=== PATIENT | female | born 1980 | race Caucasian/White ===

== ENCOUNTER → 2016-12-09 | Outpatient (CLI) | payer BC ==
[~2016-12-09] MED LIST: ATIV1TAB7 PO; IRON65TA PO; LEXA1TAB2 PO; OXYC1TAB23 PO; PROT1TAB2 PO; TYLE167L PO
--- NOTE | 2016-12-12 23:45 | ECWPNPC ---
PATIENT NAME: VANDANA RIOS : 1980 GENDER: FEMALE VISIT DATE: 12/09/2016 DISCHARGE DATE: 12/09/16 1239 VISIT LOCKED DATE TIME: PHYSICIAN: SERGEY NEGRETE RESOURCE: SERGEY NEGRETE REASON FOR APPOINTMENT 1. BACK HISTORY OF PRESENT ILLNESS HISTORY OF PRESENT ILLNESS: PAIN THE PATIENT DESCRIBES THE PAIN... FALL RISK SCREENING: SCREENING :NO FALLS IN THE PAST YEAR TODAY'S VISIT: NOTES: RATES PAIN TODAY 10. IS DISCUSSING A CLAY-AURICULAR IMPLANT WITH DR MATHEW. IS GOING TO GYM ON A REGULAR BASIS FOR CORE STRENGTHENING. . CURRENT MEDICATIONS TAKING EFFEXOR XR 150 MG CAPSULE EXTENDED RELEASE 24 HOUR 1 CAPSULE WITH FOOD ORALLY ONCE A DAY TAKING LEVOTHYROXINE SODIUM 50 MCG TABLET 1 TABLET ORALLY ONCE A DAY TAKING CALCIUM 500 MG TABLET 1 TABLET WITH MEALS ORALLY TWICE A DAY TAKING VITAMIN B 12 100 MCG LOZENGE ORALLY DAILY TAKING VITAMIN D 31261 UNIT CAPSULE 1 CAPSULE ORALLY WEEKLY TAKING PERCOCET 5-325 MG TABLET 1 TABLET ORALLY TAKE 1-2 Q 6 HRS PRN PAIN MDD=4 NOT-TAKING BIOTIN 5000 5 MG CAPSULE 1 CAPSULE ORALLY ONCE A DAY NOT-TAKING IRON 325 (65 FE) MG TABLET 1 TABLET ORALLY ONCE A DAY MEDICATION LIST REVIEWED AND RECONCILED WITH THE PATIENT PAST MEDICAL HISTORY 2010 GASTRIC BYPASS ANEMIA DEPRESSION ALLERGIES MOTRIN: CONTRAINDICATED: CONTRAINDICATION GABAPENTIN: BLURRED VISION: SIDE EFFECTS SOCIAL HISTORY GENERAL: TOBACCO USE ARE YOU A:CURRENT SMOKER E-CIGARETTEYES LEARNING BARRIERS / SPECIAL NEEDS ORIENTED TO PLAN OF CARE: PATIENT, PAIN MANAGEMENT PATIENT, ORIENTED TO PLAN OF CARE: PATIENT, PAIN MANAGEMENT PATIENT. NEW PATIENT PAIN DIARY TODAY'S VISITNOTES FROM 0-10, WHAT LEVEL IS YOUR PAIN TODAY?0 PAIN CLINIC PFS, CLERGY, PUBLIC HEALTH REFERRALS PFS REFERRAL NEEDED?NO CLERGY REFERRAL NEEDED?NO PUBLIC HEALTH REFERRAL NEEDED?NO WAS THE PROVIDER NOTIFIED OF ANY PERTINENT INFO?NO PFS REFERRAL NEEDED?NO CLERGY REFERRAL NEEDED?NO PUBLIC HEALTH REFERRAL NEEDED?NO WAS THE PROVIDER NOTIFIED OF ANY PERTINENT INFO?NO REVIEW OF SYSTEMS CONSTITUTIONAL: ANY CHANGE IN YOUR MEDICAL CONDITION? NO . CHILLS NO . FEVER NO . INFECTION: DO YOU HAVE NEW INFECTIONS? NO . DO YOU HAVE HISTORY OF MRSA? NO . MUSCULOSKELETAL: ANY NEW PATTERNS OF PAIN OR NUMBNESS? YES, INCREASED PAIN IN LOW BACK AND LEGS . GASTROENTEROLOGY: GENERAL S/P GASTRIC BYPASS. WEIGHT IS CURRENTLY STABLE. DENIES CONSTIPATION . ANY NEW CHANGE IN BOWEL CONTROL? NO . GENITOURINARY: ANY NEW CHANGE IN BLADDER CONTROL? NO . IS THERE A CHANCE YOU COULD BE ? NO . HEMATOLOGY/LYMPH: DO YOU TAKE ANY BLOOD THINNERS? (FOR EXAMPLE- COUMADIN, PLAVIX, AGGRENOX, PLATEL, PRADAXA, OR XARELTO) NO . WHEN WAS YOUR LAST DOSE? DATE: TIME: . NEUROLOGY: HAVE YOU FALLEN IN THE PAST 6 MONTHS? NO . ANY NEW EXTREMITY NUMBNESS OR WEAKNESS? NO . CARDIOLOGY: DO YOU HAVE A PACEMAKER OR DEFIBRILLATOR? NO . RESPIRATORY: HAVE YOU BEEN SICK IN THE PAST WEEK? NO . FEVER NO . FLU LIKE SYMPTOMS? NO . COUGH NO . INTEGUMENTARY: DO YOU HAVE ANY RASHES OR OPEN SORES? NO . ALLERGIC/IMMUNO: ARE YOU ALLERGIC TO SHELLFISH OR IV DYE? NO . ANY NEW ALLERGIES? NO . PSYCHIATRIC: DO YOU HAVE THOUGHTS OF HURTING YOURSELF OR SOMEONE ELSE? NO . ARE YOU ABUSED, NEGLECTED, OR IN AN UNSAFE ENVIRONMENT? NO . ENDOCRINOLOGY: ARE YOU DIABETIC? NO . OTHER: DO YOU NEED ANY PRESCRIPTIONS? NO . IF YES, PLEASE LIST: ____ . ANY NEW PROBLEMS WITH YOUR MEDICATIONS? NO . WHEN DID YOU LAST EAT? ____ . WHEN DID YOU LAST DRINK? ____ . WHAT DID YOU LAST DRINK? ____ . NAME OF PERSON DRIVING YOU HOME? ____ . DO YOU HAVE ANY OTHER QUESTIONS OR CONCERNS NO . REVIEWED BY: PROVIDER: SERGEY CALDERON . VITAL SIGNS WT 195.2 LBS, HT 63 IN, BMI 34.57 INDEX, BP 150/84 MM HG, HR 82 /MIN, RR 16 /MIN, TEMP 97.0 F, OXYGEN SAT % 99%, NA INITIALS SC 11:55, REVIEWED BY: CS. EXAMINATION GENERAL EXAMINATION: PSYCHALERT , ORIENTED X 3 , APPROPRIATE MOOD AND AFFECT . LUNGS:CLEAR TO AUSCULTATION BILATERALLY. MUSCULOSKELETAL:MUSCLE STRENGTH TESTING 5/5 BILATERAL LOWER EXTREMITIES. , PALPATION: POSITIVE FOR MINIMAL TENDERNESS OVER L/S SPINE. FEW TRIGGER POINTS ARE APPRECIATED ACROSS LUMBAR PARAVERTEBRAL MUSCLES. ASSESSMENTS LUMBAR DISC DISPLACEMENT WITHOUT MYELOPATHY - M51.26 (PRIMARY) MYALGIA - M79.1 TREATMENT LUMBAR DISC DISPLACEMENT WITHOUT MYELOPATHY START BUTRANS PATCH WEEKLY, 5 MCG/HR, 1 PATCH TO SKIN, TRANSDERMAL, APPLY 1 PATCH Q 7 DAYS MDD=1, 30 DAY(S), 4, REFILLS 1 NOTES: CONTINUE EXERCISE. CONTINE PLANNED EXERCISE AND DIET. CONTINE CURRENT MEDS. CLINICAL NOTES: ISTOP REGISTRY REVIEWED AND DEMNOSTRATES COMPLLIANCE. RECENT URINE TOXICOLOGY REVIEWED. NO UNAUTHORIZED MEDICATIONS. NO ILLICIT SUBSTANCES AND PRESCRIBED MEDICATIONS WERE PRESENT. PREVENTIVE MEDICINE PAIN CLINIC TEACHING: MEDICATIONS BUTRANS PATCH INFORMATION PRINTED AND GIVEN TO PATIENT. PROCEDURE CODES FA211 ESTABILISHED PATIENT [facility] CHARGE DISPOSITION & COMMUNICATION FOLLOW UP 2 MONTHS ELECTRONICALLY SIGNED BY TAWNYA CASE ON 12/12/2016 AT 08:02 PM EDT DISCLAIMER : THIS IS A VISIT SUMMARY EXTRACTED FROM THE [employer] CHART. IT IS NOT A COPY OF THE [employer] PROGRESS NOTE. JOHN
== END ==
LOC: M PAIN 11:40
PROVIDERS: ATTEND Nurse Practitioner Family
DX: Z09 Encounter for follow-up examination after completed treatment for conditions other than malignant neoplasm (principal); G89.29 Other chronic pain; M51.26 Other intervertebral disc displacement, lumbar region; M79.1 Myalgia; D64.9 Anemia, unspecified; F32.9 Major depressive disorder, single episode, unspecified; F17.200 Nicotine dependence, unspecified, uncomplicated; Z88.6 Allergy status to analgesic agent; Z88.8 Allergy status to other drugs, medicaments and biological substances; Z79.891 Long term (current) use of opiate analgesic; Z79.899 Other long term (current) drug therapy; Z98.84 Bariatric surgery status

== ENCOUNTER 2017-03-14 01:35 | Emergency (ER) | payer BC ==
[~2017-03-14] VITALS: Ht 160 cm; Wt 90.0 kg
[2017-03-14] MEDS ORDERED: EFFE150C PO (01:52)
[2017-03-14] MEDS ORDERED: LEVO50TA5 PO (01:52)
[2017-03-14] MEDS ORDERED: D5W/0.9% SODIUM CHLORIDE 1,000 ML IV ONE (02:45)
[2017-03-14] MEDS ORDERED: METOCLOPRAMIDE INJ 10MG/2ML VIAL (J2765) IV ONE (02:45)
--- NOTE | 2017-03-14 03:10 | REP ---
Clinical: Trauma . Comparison: None . Findings: The ventricles, sulci, and cisterns are normal in position and appearance. Lewis-white differentiation is maintained. No acute intracranial hemorrhage, mass/mass effect, pathology or trauma/injury. No evidence for acute infarction. No extra-axial fluid collection. Calvarium is intact. Paranasal sinuses and mastoid air cells are clear. Impression: Normal noncontrast head CT. No evidence for acute intracranial pathology or trauma/injury. Signed by Serg Young MD 03/14/2017 03:02 A
--- NOTE | 2017-03-14 03:11 | REP ---
Clinical: Trauma . Technique: Axial noncontrast images from the skull base to the thoracic inlet with coronal and sagittal re-formations Findings: Normal alignment and lordosis is maintained. Cervical vertebral bodies including transverse processes and spinous processes are intact and there is no evidence for acute fracture / compression injury or subluxation. Spinal canal is patent. Posterior elements are intact. Paravertebral soft tissues are normal. Impression: Normal noncontrast cervical spine CT. No evidence for acute pathology or trauma/injury. Signed by Serg Young MD 03/14/2017 03:03 A
[2017-03-14] MEDS ORDERED: MORPHINE 4 MG/ML 1ML SYRINGE As Ordered ONE (03:13)
[2017-03-14] MEDS ORDERED: MORPHINE 4 MG/ML 1ML SYRINGE IV ONE (03:15)
[2017-03-14 03:41] LABS: BASO % 0.1 % (0.0-1.0); EOS # 0.1 K/mm3 (0.0-0.50); EOS % 0.9 % (0.0-3.0); LARGE UNSTAINED CELL # 0.1 K/mm3 (0.0-0.4); LARGE UNSTAINED CELL % 0.8 % (0.0-4.0); LYMPH # 1.2 K/mm3 (1.5-4.5); LYMPH % 11.7 % (24.0-44.0); MEAN CORPUSCULAR HEMOGLOBIN 26.2 pg (27.0-33.0); MEAN CORPUSCULAR HGB CONC 30.9 g/dl (32.0-36.5); MEAN CORPUSCULAR VOLUME 84.5 fl (80.0-96.0); MONO # 0.5 K/mm3 (0.0-0.8); MONO % 5.2 % (0.0-5.0); NEUTROPHILS # 7.7 K/mm3 (1.8-7.7); NEUTROPHILS % 81.3 % (36.0-66.0); PLATELET COUNT, AUTOMATED 240 k/mm3 (150-450); WHITE BLOOD COUNT 9.4 K/mm3 (4.0-10.0)
[2017-03-14] MEDS ORDERED: LIDOCAINE W/EPINEPHRINE 1% 20ML VIAL SC ONE (04:00)
[2017-03-14] MEDS ORDERED: TETANUS/DIPHTHERIA TOX ADSORB ADULT 0.5ML SYR/VIAL (90714) IM ONE (04:30)
[2017-03-14 04:52] VITALS: BP 106/55
[2017-03-14] MEDS ORDERED: ONDANSETRON 4MG/2ML VIAL (J2405) IV ONE (05:00)
== END 2017-03-14 05:01 | disposition home or self-care (01) ==
LOC: M ED 04:24
DX: S01.01XA Laceration without foreign body of scalp, initial encounter (principal); W18.09XA Striking against other object with subsequent fall, initial encounter; Y92.019 Unspecified place in single-family (private) house as the place of occurrence of the external cause; Y93.9 Activity, unspecified; Y99.9 Unspecified external cause status; F32.9 Major depressive disorder, single episode, unspecified; F17.200 Nicotine dependence, unspecified, uncomplicated; Z79.899 Other long term (current) drug therapy
CPT/HCPCS: 12002; 70450; 72125; 85025; 90471; 90714; 93041; 94760; 96374; 96375; 99285; J2405; J2765

== ENCOUNTER → 2017-03-21 | Outpatient (CLI) | payer BC ==
[~2017-03-21] MED LIST changes: +EFFE150C PO; +LEVO50TA5 PO
[2017-03-21 17:26] LABS: VITAMIN B12 LEVEL 507 PG/ML
[2017-03-21 17:27] LABS: ALBUMIN 3.8 GM/DL (3.2-5.2); ALBUMIN/GLOBULIN RATIO 1.09 (1.00-1.93); ALKALINE PHOSPHATASE 58 U/L (45-117); ALT/SGPT 26 U/L (12-78); ANION GAP 4 MEQ/L (8-16); AST/SGOT 22 U/L (15-37); BILIRUBIN,TOTAL 0.3 MG/DL (0.2-1.0); BLOOD UREA NITROGEN 11 MG/DL (7-18); CALCIUM LEVEL 8.5 MG/DL (8.5-10.1); CARBON DIOXIDE LEVEL 29 MEQ/L (21-32); CHLORIDE LEVEL 106 MEQ/L (98-107); CREATININE FOR GFR 0.81 MG/DL (0.55-1.02); FOLATE 11.5 NG/ML; GLOMERULAR FILTRATION RATE > 60.0 (>60); GLUCOSE, FASTING 57 MG/DL (70-105); POTASSIUM SERUM 4.2 MEQ/L (3.5-5.1); SODIUM LEVEL 139 MEQ/L (136-145); TOTAL PROTEIN 7.3 GM/DL (6.4-8.2)
[2017-03-21 17:28] LABS: FREE T4 0.93 NG/DL (0.76-1.46)
== END ==
LOC: M WUC 11:18
PROVIDERS: ATTEND Nurse Practitioner Family
DX: E53.8 Deficiency of other specified B group vitamins (principal); E55.9 Vitamin D deficiency, unspecified; E03.9 Hypothyroidism, unspecified; E61.1 Iron deficiency

== ENCOUNTER → 2017-08-12 | Outpatient (CLI) | payer BC ==
[2017-08-12 13:56] LABS: ALBUMIN 3.9 GM/DL (3.2-5.2); ALBUMIN/GLOBULIN RATIO 1.11 (1.00-1.93); ALKALINE PHOSPHATASE 62 U/L (45-117); ALT/SGPT 23 U/L (12-78); ANION GAP 6 MEQ/L (8-16); AST/SGOT 13 U/L (7-37); BILIRUBIN,TOTAL 0.3 MG/DL (0.2-1.0); BLOOD UREA NITROGEN 14 MG/DL (7-18); CARBON DIOXIDE LEVEL 28 MEQ/L (21-32); CHLORIDE LEVEL 107 MEQ/L (98-107); CREATININE FOR GFR 0.85 MG/DL (0.55-1.02); FREE T4 0.87 NG/DL (0.76-1.46); GLOMERULAR FILTRATION RATE > 60.0 (>60); GLUCOSE, FASTING 72 MG/DL (70-105); POTASSIUM SERUM 4.1 MEQ/L (3.5-5.1); SODIUM LEVEL 141 MEQ/L (136-145); TOTAL PROTEIN 7.4 GM/DL (6.4-8.2)
== END ==
LOC: M WUC 10:27
PROVIDERS: ATTEND Nurse Practitioner Family
DX: E61.1 Iron deficiency (principal); E55.9 Vitamin D deficiency, unspecified

== ENCOUNTER → 2017-09-30 | Outpatient (CLI) | payer BC | LOC: M PAIN 10:45 | DX: M51.26 Other intervertebral disc displacement, lumbar region (principal); M79.1 Myalgia; M54.16 Radiculopathy, lumbar region; F32.9 Major depressive disorder, single episode, unspecified; Z79.899 Other long term (current) drug therapy; Z88.8 Allergy status to other drugs, medicaments and biological substances; Z98.84 Bariatric surgery status | CPT/HCPCS: G0463 ==

== ENCOUNTER → 2017-10-13 | Outpatient (REF) | payer BC | LOC: M LAB REF 16:42 | DX: J03.90 Acute tonsillitis, unspecified (principal) | CPT/HCPCS: 87081 ==

== ENCOUNTER → 2017-10-20 | Outpatient (CLI) | payer BC ==
[~2017-10-20] MED LIST changes: -ATIV1TAB7 PO; -EFFE150C PO; -IRON65TA PO; -LEVO50TA5 PO; -LEXA1TAB2 PO; +LIDOCAINE 1% SDV INJ 30 ML VIAL As Ordered; -OXYC1TAB23 PO; -PROT1TAB2 PO; -TYLE167L PO; +diazePAM 5 MG TAB As Ordered; +methylPREDNISolone SUSP 40 MG/ML (DEPO-medrol) VIAL (J1030) As Ordered; +oxyCODONE 5MG TAB As Ordered
== END ==
LOC: M PAIN 10:45
DX: G89.29 Other chronic pain (principal); M51.16 Intervertebral disc disorders with radiculopathy, lumbar region; J45.909 Unspecified asthma, uncomplicated; F32.9 Major depressive disorder, single episode, unspecified; F17.200 Nicotine dependence, unspecified, uncomplicated; Z79.899 Other long term (current) drug therapy; Z88.6 Allergy status to analgesic agent; Z88.8 Allergy status to other drugs, medicaments and biological substances; Z98.84 Bariatric surgery status
CPT/HCPCS: J1030

== ENCOUNTER → 2017-12-09 | Outpatient (CLI) | payer BC | LOC: M PAIN 14:15 | DX: G89.29 Other chronic pain (principal); M51.26 Other intervertebral disc displacement, lumbar region; M79.1 Myalgia; M54.16 Radiculopathy, lumbar region; D64.9 Anemia, unspecified; F32.9 Major depressive disorder, single episode, unspecified; Z98.84 Bariatric surgery status; F17.210 Nicotine dependence, cigarettes, uncomplicated; Z79.891 Long term (current) use of opiate analgesic; Z79.899 Other long term (current) drug therapy; Z88.8 Allergy status to other drugs, medicaments and biological substances | CPT/HCPCS: G0463 ==

== ENCOUNTER → 2017-12-17 | Outpatient (CLI) | payer BC ==
[~2017-12-17] MED LIST changes: +ISOVUE-M 300 61% 15ML VIAL (Q9967) As Ordered; +diphenhydrAMINE 25 MG CAP As Ordered
== END ==
LOC: M PAIN 08:30
DX: G89.29 Other chronic pain (principal); M51.16 Intervertebral disc disorders with radiculopathy, lumbar region; D64.9 Anemia, unspecified; F32.9 Major depressive disorder, single episode, unspecified; Z79.891 Long term (current) use of opiate analgesic; Z79.899 Other long term (current) drug therapy; Z88.8 Allergy status to other drugs, medicaments and biological substances; Z98.84 Bariatric surgery status
CPT/HCPCS: J1030

== ENCOUNTER → 2018-01-28 | Outpatient (CLI) | payer BC | END | disposition home or self-care (01) | LOC: M PAIN 15:15 | DX: G89.29 Other chronic pain (principal); M51.26 Other intervertebral disc displacement, lumbar region; M79.1 Myalgia; M54.16 Radiculopathy, lumbar region; F33.9 Major depressive disorder, recurrent, unspecified; D64.9 Anemia, unspecified; Z98.84 Bariatric surgery status; Z79.899 Other long term (current) drug therapy; Z88.8 Allergy status to other drugs, medicaments and biological substances; F17.210 Nicotine dependence, cigarettes, uncomplicated | CPT/HCPCS: G0463 ==

== ENCOUNTER → 2018-03-11 | Outpatient (CLI) | payer BC | LOC: M PAIN 15:15 | DX: M51.26 Other intervertebral disc displacement, lumbar region (principal); M79.1 Myalgia; M54.16 Radiculopathy, lumbar region; F17.210 Nicotine dependence, cigarettes, uncomplicated; F32.9 Major depressive disorder, single episode, unspecified; Z79.899 Other long term (current) drug therapy; Z88.8 Allergy status to other drugs, medicaments and biological substances; Z98.84 Bariatric surgery status | CPT/HCPCS: G0463 ==

== ENCOUNTER 2019-04-05 20:18 | Emergency (ER) | payer BC, SELFPAY ==
[~2019-04-05 20:18] MED LIST changes: +ATIV1TAB7 PO; +EFFE150C2 PO; +IRON65TA PO; -ISOVUE-M 300 61% 15ML VIAL (Q9967) As Ordered; +LEVO50TA5 PO; +LEXA1TAB2 PO; -LIDOCAINE 1% SDV INJ 30 ML VIAL As Ordered; +OXYC1TAB23 PO; +PROT1TAB2 PO; +TYLE167L PO; -diazePAM 5 MG TAB As Ordered; -diphenhydrAMINE 25 MG CAP As Ordered; -methylPREDNISolone SUSP 40 MG/ML (DEPO-medrol) VIAL (J1030) As Ordered; -oxyCODONE 5MG TAB As Ordered
[2019-04-05 22:17] LABS: APPEARANCE, URINE CLEAR (CLEAR); BACTERIA, URINE AUTO 1+ (NEGATIVE); BILIRUBIN, URINE AUTO NEGATIVE (NEGATIVE); BLOOD, URINE BLOOD NEGATIVE (NEGATIVE); COLOR, URINE YELLOW (YELLOW); GLUCOSE, URINE (UA) AUTO NEGATIVE (NEGATIVE); KETONE, URINE AUTO NEGATIVE (NEGATIVE); LEUKOCYTE ESTERASE, URINE AUTO NEGATIVE (NEGATIVE); NITRITE, URINE AUTO NEGATIVE (NEGATIVE); PROTEIN, URINE AUTO NEGATIVE (NEGATIVE); RBC, URINE AUTO 2 /HPF (0-3); SPECIFIC GRAVITY URINE AUTO 1.009 (1.002-1.035); SQUAMOUS EPITHELIAL CELL UR AU 2 /HPF (0-6); UROBILINOGEN, URINE AUTO 0.2 mg/dL (0.0-2.0); WBC, URINE AUTO 1 /HPF (0-3)
[2019-04-05 23:37] LABS: CHLAMYDIA DNA AMPLIFICATION NEGATIVE (NEGATIVE); GC DNA AMPLIFICATION NEGATIVE (NEGATIVE)
[2019-04-06] MEDS ORDERED: valACYclovir HCL 500 MG TAB PO ONE (00:15)
[2019-04-06] MEDS ORDERED: VALA1TAB2 PO (00:20)
[2019-04-06 00:42] VITALS: BP 159/67
[2019-04-10 00:07] LABS: HSV TYPE I IgG SPECIFIC <0.91 index (0.00-0.90); HSV TYPE I IgM AB <1:10 titer (<1:10); HSV TYPE II IgG SPECIFIC <0.91 index (0.00-0.90); HSV TYPE II IgM ABY <1:10 titer (<1:10)
== END 2019-04-06 00:43 | disposition home or self-care (01) ==
LOC: M ED 20:18 → EEVIPCON 20:18 → M ED 04-06 00:43
DX: A60.00 Herpesviral infection of urogenital system, unspecified (principal); Z98.84 Bariatric surgery status; Z79.899 Other long term (current) drug therapy

== ENCOUNTER 2019-07-22 19:19 | Emergency (ER) | payer SELFPAY ==
[~2019-07-22] VITALS: Ht 160 cm; Wt 95.5 kg
[~2019-07-22 19:19] MED LIST changes: +VALA1TAB2 PO
[2019-07-22] MEDS ORDERED: metroNIDAZOLE 500 MG in IV 1 EA IV ONE (20:15)
[2019-07-22] MEDS ORDERED: AMPICILLIN SOD/SULBACTAM SOD 3 GM in D5W MINI-BAG PLUS 100 ML IV ONE (20:15)
[2019-07-22] MEDS ORDERED: MORPHINE 2 MG/ML 1ML VIAL (J2270) IV ONE (20:15)
[2019-07-22] MEDS ORDERED: BUPIVACAINE LIPOSOME/PF 1.3% 20ML VIAL (13.3MG/ML)(EXPAREL)(C9290 PER1MG) INFIL ONE (20:15)
[2019-07-22] MEDS ORDERED: ONDANSETRON 4MG/2ML VIAL (J2405) As Ordered ONE (20:27)
[2019-07-22] MEDS ORDERED: ONDANSETRON 4MG/2ML VIAL (J2405) IV ONE (20:30)
[2019-07-22] MEDS ORDERED: FLAG500T PO (20:57)
[2019-07-22] MEDS ORDERED: MORPHINE 4 MG/ML 1ML VIAL/SYRINGE (J2270) IV ONE ×2 (22:30→23:45)
[2019-07-22 22:50] VITALS: BP 171/91
--- NOTE | 2019-07-22 23:31 | REPVR ---
PROCEDURE INFORMATION: Exam: CT Maxillofacial Without Contrast Exam date and time: 07/22/2019 10:25 PM Clinical history: 38 years old, female; Condition or disease; Abcess; Jaw; Right; Additional info: Eval periodnt absc TECHNIQUE: Imaging protocol: Computed tomography images of the face without contrast. Radiation optimization: All CT scans at this facility use at least one of these dose optimization techniques: automated exposure control; mA and/or kV adjustment per patient size (includes targeted exams where dose is matched to clinical indication); or iterative reconstruction. COMPARISON: No relevant prior studies available. FINDINGS: Limitations: Dental amalgam artifact obscures the oral cavity and oral pharynx. Orbits: Orbits are normal. Globes are unremarkable. Sinuses: Mild ethmoid sinus mucosal thickening. Bones/joints: No acute fracture. Dental: Right mandibular first and second premolars periapical abscess. Right perimandibular phlegmon and thickening. Dental caries and periodontal disease. Oropharynx: There is some gas foci, likely venous in the right parapharyngeal space. Lymph nodes: Mild upper cervical chain adenopathy. Submandibular/Parotid glands: Asymmetrically larger right submandibular gland, evidence of sialadenitis. Soft tissues: Right cheek subcutaneous stranding and edema. IMPRESSION: 1. Right mandibular first and second premolars periapical abscess. Right perimandibular phlegmon and thickening. Right cheek subcutaneous stranding and edema. 2. Asymmetrically larger right submandibular gland, evidence of sialadenitis. Electronically signed by: Korey Gomez On 07/22/2019 23:31:27 PM
[2019-07-22] MEDS ORDERED: NORCO 5/325MG TABLET (BULK FOR ED) PO ONE (23:45)
--- NOTE | 2019-07-22 23:47 | ED PDOC ---
Post-Departure Follow-Up After my first intraoral injection I went to re-evaluate pt. stated her tongue was numb, but her teeth/face still hurt. I felt the infiltration was only to the lingual nerve. Went back and infiltrated more posteriorly on the mandibular body in order to anesthetize the alveolar nerve. P t. stated this improved her tooth pain but not her facial pain. BERANRDA TUBBS DO Jul 22, 2019 23:47
[2019-07-23] MEDS ORDERED: MORPHINE 4 MG/ML 1ML VIAL/SYRINGE (J2270) IV ONE (00:15)
[2019-07-23] MEDS ORDERED: HYDR-3713 PO ×2 (13:31→16:27)
[2019-07-23] MEDS ORDERED: AUGM875T28 PO (16:20)
== END 2019-07-23 00:35 | disposition home or self-care (01) ==
LOC: M ED 19:19
DX: K04.7 Periapical abscess without sinus (principal); K02.9 Dental caries, unspecified; F32.9 Major depressive disorder, single episode, unspecified; E03.9 Hypothyroidism, unspecified; Z79.899 Other long term (current) drug therapy
CPT/HCPCS: 64400; 70486; 96365; 96375; 96376; 99284; J2270; J2405

== ENCOUNTER 2019-07-23 13:19 | Emergency (ER) | payer BC, SELFPAY ==
[~2019-07-23] VITALS: Ht 160 cm; Wt 96.2 kg
[~2019-07-23 13:19] MED LIST changes: +FLAG500T PO
[2019-07-23] MEDS ORDERED: HYDR-3713 PO ×2 (13:31→16:27)
[2019-07-23 14:00] LABS: BASO # 0.1 10^3/uL (0.0-0.2); BASO % 0.7 % (0.0-1.0); EOS # 0.2 10^3/uL (0.0-0.5); EOS % 2.1 % (0.0-3.0); HEMATOCRIT 34.5 % (36.0-47.0); HEMOGLOBIN 10.4 g/dl (12.0-15.5); LYMPH # 1.6 10^3/uL (1.5-5.0); LYMPH % 21.6 % (24.0-44.0); MEAN CORPUSCULAR HEMOGLOBIN 24.4 pg (27.0-33.0); MEAN CORPUSCULAR HGB CONC 30.1 g/dl (32.0-36.5); MEAN CORPUSCULAR VOLUME 80.8 fl (80.0-96.0); MONO # 0.9 10^3/uL (0.0-0.8); MONO % 11.8 % (0.0-5.0); NEUTROPHILS # 4.6 10^3/uL (1.5-8.5); NEUTROPHILS % 63.4 % (36.0-66.0); PLATELET COUNT, AUTOMATED 321 10^3/uL (150-450); RED BLOOD COUNT 4.27 10^6/uL (4.00-5.40); WHITE BLOOD COUNT 7.3 10^3/uL (4.0-10.0)
[2019-07-23 14:23] LABS: BLOOD UREA NITROGEN 11 MG/DL (7-18); C REACTIVE PROTEIN QUANTITATIV 2.31 MG/DL (0.00-0.30); CALCIUM LEVEL 8.8 MG/DL (8.5-10.1); CARBON DIOXIDE LEVEL 26 MEQ/L (21-32); CHLORIDE LEVEL 108 MEQ/L (98-107); CREATININE FOR GFR 0.86 MG/DL (0.55-1.30); GLOMERULAR FILTRATION RATE > 60.0 (>60); GLUCOSE, FASTING 89 MG/DL (70-100); POTASSIUM SERUM 3.8 MEQ/L (3.5-5.1); SODIUM LEVEL 138 MEQ/L (136-145)
[2019-07-23 14:41] LABS: ERYTHROCYTE SEDIMENTATION RATE 26 mm/hr (0-20)
[2019-07-23] MEDS ORDERED: MORPHINE 2 MG/ML 1ML VIAL (J2270) IV ONE (15:15)
[2019-07-23] MEDS ORDERED: BUPIVACAINE/EPIN 0.5% 30 ML VIAL XX ONE (16:00)
[2019-07-23] MEDS ORDERED: BUPIVACAINE HCL 0.5% 10 ML VIAL SC ONE (16:00)
[2019-07-23] MEDS ORDERED: BUPIVACAINE HCL 0.5% 10 ML VIAL As Ordered ONE (16:00)
[2019-07-23] MEDS ORDERED: AUGMENTIN 875 MG TAB PO ONE (16:15)
[2019-07-23] MEDS ORDERED: KETOROLAC 60 MG/2 ML VIAL (J1885) IM ONE (16:15)
[2019-07-23] MEDS ORDERED: AUGM875T28 PO (16:20)
[2019-07-23] MEDS ORDERED: KETOROLAC 30 MG/ML VIAL (J1885) IV ONE (16:30)
[2019-07-23 16:32] VITALS: BP 171/89
--- NOTE | 2019-07-24 07:52 | ED PDOC ---
Post-Departure Follow-Up ct max fac faxed to dr gomes for fu Abbi Marcelino MD Jul 24, 2019 07:52
== END 2019-07-23 16:41 | disposition home or self-care (01) ==
LOC: M ED 13:19
DX: K04.7 Periapical abscess without sinus (principal); K08.89 Other specified disorders of teeth and supporting structures; R51 Headache; Z98.84 Bariatric surgery status; F17.290 Nicotine dependence, other tobacco product, uncomplicated; Z79.899 Other long term (current) drug therapy
CPT/HCPCS: 80048; 85025; 85652; 86140; 96374; 96375; 99284; J1885; J2270

== ENCOUNTER → 2019-12-13 | Outpatient (CLI) | payer BC ==
[~2019-12-13] MED LIST changes: +AUGM875T28 PO; +HYDR-3713 PO; -VALA1TAB2 PO; +VALA1TAB5 PO
[2019-12-13 12:51] LABS: BASO % 0.8 % (0.0-1.0); EOS # 0.2 10^3/uL (0.0-0.5); EOS % 3.8 % (0.0-3.0); HEMOGLOBIN 9.5 g/dl (12.0-15.5); LYMPH # 1.5 10^3/uL (1.5-5.0); LYMPH % 29.5 % (24.0-44.0); MEAN CORPUSCULAR HEMOGLOBIN 22.4 pg (27.0-33.0); MEAN CORPUSCULAR HGB CONC 28.8 g/dl (32.0-36.5); MEAN CORPUSCULAR VOLUME 77.8 fl (80.0-96.0); MONO # 0.5 10^3/uL (0.0-0.8); NEUTROPHILS # 2.8 10^3/uL (1.5-8.5); NEUTROPHILS % 55.7 % (36.0-66.0); PLATELET COUNT, AUTOMATED 326 10^3/uL (150-450); RED BLOOD COUNT 4.24 10^6/uL (4.00-5.40)
[2019-12-13 13:15] LABS: ALBUMIN 3.7 GM/DL (3.2-5.2); ALT/SGPT 23 U/L (12-78); BILIRUBIN,TOTAL 0.4 MG/DL (0.2-1.0); BLOOD UREA NITROGEN 10 MG/DL (7-18); CALCIUM LEVEL 8.7 MG/DL (8.5-10.1); CARBON DIOXIDE LEVEL 28 MEQ/L (21-32); CHLORIDE LEVEL 110 MEQ/L (98-107); CHOLESTEROL LEVEL 157 MG/DL (<200); CHOLESTEROL RISK RATIO 2.012 (<5); CREATININE FOR GFR 0.76 MG/DL (0.55-1.30); FREE T4 0.68 NG/DL (0.76-1.46); GLOMERULAR FILTRATION RATE > 60.0 (>60); GLUCOSE, FASTING 87 MG/DL (70-100); HDL CHOLESTEROL 78 MG/DL (>40); LDL CHOLESTEROL 66 MG/DL (<100); NON-HDL-C 79 MG/DL; SODIUM LEVEL 141 MEQ/L (136-145); TOTAL 25(OH) VITAMIN D 34.9 NG/ML (30.0-100.0); TOTAL PROTEIN 7.2 GM/DL (6.4-8.2); TRIGLYCERIDES LEVEL 67 MG/DL (<150)
== END ==
LOC: M WUC 10:00
PROVIDERS: ATTEND Physician Assistant
DX: K91.2 Postsurgical malabsorption, not elsewhere classified (principal); E03.9 Hypothyroidism, unspecified; R53.83 Other fatigue; Z00.01 Encounter for general adult medical examination with abnormal findings

== ENCOUNTER → 2020-08-22 | Outpatient (REF) | payer BC ==
[2020-08-22 16:45] LABS: EOS # 0.2 10^3/uL (0.0-0.5); EOS % 3.8 % (0.0-3.0); HEMATOCRIT 33.4 % (36.0-47.0); HEMOGLOBIN 9.2 g/dl (12.0-15.5); LYMPH # 1.4 10^3/uL (1.5-5.0); LYMPH % 35.3 % (24.0-44.0); MEAN CORPUSCULAR HEMOGLOBIN 21.5 pg (27.0-33.0); MEAN CORPUSCULAR HGB CONC 27.5 g/dl (32.0-36.5); MONO # 0.4 10^3/uL (0.0-0.8); MONO % 10.3 % (0.0-5.0); NEUTROPHILS % 49.3 % (36.0-66.0); PLATELET COUNT, AUTOMATED 325 10^3/uL (150-450); RED BLOOD COUNT 4.28 10^6/uL (4.00-5.40)
[2020-08-22 16:54] LABS: THYROID STIMULATING HORMONE 1.07 uIU/ML (0.358-3.740)
== END ==
LOC: M LAB REF 16:07
PROVIDERS: ATTEND Physician Assistant
DX: E03.9 Hypothyroidism, unspecified (principal); D50.8 Other iron deficiency anemias

== ENCOUNTER → 2020-12-04 | Outpatient (CLI) | payer BC ==
[~2020-12-04] MED LIST changes: +AMIT10TA7 PO; +TIZA4CAP PO; +TOPI50TA9 PO; +TRAM50TA2 PO
== END ==
LOC: M LABSMTC 13:15
PROVIDERS: ATTEND Family Medicine
DX: Z20.822 Contact with and (suspected) exposure to COVID-19 (principal)
CPT/HCPCS: C9803; U0003

== ENCOUNTER → 2020-12-12 | Outpatient (CLI) | payer BC ==
--- NOTE | 2020-12-14 00:49 | ECWPNPC ---
PATIENT NAME: VANDANA RIOS : 1980 GENDER: FEMALE VISIT DATE: 12/12/2020 DISCHARGE DATE: 12/12/20939 VISIT LOCKED DATE TIME: PHYSICIAN: LEONARD CAMARGO RESOURCE: LEONARD CAMARGO REASON FOR APPOINTMENT 1. DEGENERATION OF LUMBAR INTERVERTABRAL DISC. HISTORY OF PRESENT ILLNESS DEPRESSION SCREENING: PHQ-2 (2015 EDITION) LITTLE INTEREST OR PLEASURE IN DOING THINGS?NOT AT ALL FEELING DOWN, DEPRESSED, OR HOPELESS?NOT AT ALL TOTAL SCORE0 40-YEAR-OLD FEMALE IN FOR INITIAL PAIN CONSULT REGARDING LOW BACK PAIN. PATIENT HAS BEEN SEEN IN THIS CLINIC PREVIOUSLY AND WAS A FORMER PATIENT OF SERGEY ROMO. PATIENT HAS HAD INJECTIONS IN THE PAST TO NO AVAIL AND IS CURRENTLY TAKING TRAMADOL WHICH SHE SAYS IS HELPFUL BUT SHE STILL EXPRESSES INCREASED PAIN. PATIENT FEELS HER LOW BACK PAIN IS RELATED TO WORKING ON THE AMBULANCE FOR MANY YEARS. PAIN CENTER INTAKE QUESTIONS: DO YOU HAVE A HISTORY OF MRSA? :NO DO YOU TAKE A BLOOD THINNERS? :NO DO YOU HAVE ANY BLEEDING DISORDERS? :NO ANY NEW NUMBNESS OR WEAKNESS IN YOUR LEGS OR ARMS? :NO ANY PACEMAKER,DEFIBRILLATOR, OR DORSAL COLUMN STIMULATOR? :NO DO YOU HAVE ANY RASHES OR OPEN SORES? :NO ARE YOU ALLERGIC TO IV DYE? :NO ARE YOU DIABETIC? :NO ANY NEW PROBLEMS WITH YOUR MEDICATIONS? :NO HAVE YOU RECEIVED A VACCINE IN THE PAST 30 DAYS? :NO DO YOU PLAN TO RECEIVE A VACCINE IN THE NEXT 21 DAYS? :NO DO YOU NEED ANY PRESCRIPTION? :NO DO YOU TAKE ANY IMMUNOSUPPRESSIVE MEDICATIONS? :NO DO YOU HAVE ANY KIDNEY OR LIVER DISEASE? :NO IS THERE A CHANCE YOU COULD BE ? :NO ARE YOU BREAST FEEDING? :NO GENERAL: - -. FALL RISK SCREENING: SCREENING ONE FALL REPORTED IN THE LAST YEAR WITH INJURY. PATIENT SOUGHT TREATMENT AT WELL NOW.. PAIN SCREENING: PATIENT HAS A COMPLAINT OF ACUTE OR CHRONIC PAIN :YES LOCATION OF PAIN:LOW BACK INTENSITY OF PAIN (SCALE OF 1 TO 10):3 WHAT DOES YOUR PAIN FEEL LIKE:ACHING, CONTINOUS DURATION:CONTINOUS PAIN IS INCREASED BY:ACTIVITIES, PROLONGED STANDING PAIN IS DECREASED BY:USE OF PAIN MEDICATIONS, SITTING, OTHERS HEAT NURSING NOTE: - -. CURRENT MEDICATIONS TAKING LEVOTHYROXINE SODIUM 50 MCG TABLET 1 TABLET ORALLY ONCE A DAY TAKING LEXAPRO 20 MG TABLET 1 TABLET ORALLY ONCE A DAY TAKING TIZANIDINE HCL 4 MG TABLET 1 TABLET NEEDED ORALLY THREE TIMES A DAY TAKING AMITRIPTYLINE HCL 10 MG TABLET 1 TABLET AT BEDTIME ORALLY ONCE A DAY NOT-TAKING EFFEXOR XR 150 MG CAPSULE EXTENDED RELEASE 24 HOUR 2 WITH FOOD ORALLY ONCE A DAY NOT-TAKING VITAMIN B 12 100 MCG LOZENGE ORALLY DAILY NOT-TAKING VITAMIN D 70191 UNIT CAPSULE 1 CAPSULE ORALLY WEEKLY NOT-TAKING BIOTIN 5000 5 MG CAPSULE 1 CAPSULE ORALLY ONCE A DAY NOT-TAKING METHOCARBAMOL 500 MG TABLET 1 TAB ORALLY BID NOT-TAKING PERCOCET 5-325 MG TABLET 1 TABLET NEEDED ORALLY BID PRN PAIN WEAN OFF MDD=2 MEDICATION LIST REVIEWED AND RECONCILED WITH THE PATIENT PAST MEDICAL HISTORY 2010 GASTRIC BYPASS ANEMIA DEPRESSION ALLERGIES MOTRIN: CONTRAINDICATED - CONTRAINDICATION GABAPENTIN: BLURRED VISION - SIDE EFFECTS FLEXERIL: EXTREME SLEEPINESS - SIDE EFFECTS SOCIAL HISTORY GENERAL: TOBACCO USE ARE YOU A:CURRENT SMOKER ARE YOU INTERESTED IN QUITTING?NOT READY TO QUIT PATIENT COUNSELED ON THE DANGERS OF TOBACCO USE AND URGED TO QUIT:12/09/2017 COUNSELED THE PATIENT ON SMOKING EFFECTS, EDUCATION [id number] LATEX QUESTIONNAIRE LATEX ALLERGY : HAVE YOU EVER DEVELOPED ANY TYPE OF REACTION AFTER HANDLING LATEX PRODUCTS SUCH RUBBER GLOVES, CONDOMS, DIAPHRAGMS, BALLOONS, SOCKS, OR UNDERWEAR?NO LATEX ALLERGY : HAVE YOU EVER DEVELOPED ANY TYPE OF REACTION DURING OR AFTER DENTAL APPOINTMENT, VAGINAL/RECTAL EXAMINATION, SURGICAL PROCEDURE, OR ANY OTHER EXPOSURE?NO LATEX RISK : HAVE YOU EVER HAD ANY DIFFICULTY BREATHING OR HIVES AFTER EATING OR HANDLING ANY FRUITS, OR VEGETABLES; SUCH KIWI, BANANAS, STONE FRUITS, OR CHESTNUTSNO LATEX RISK : DO YOU HAVE A PREVIOUS PERSONAL HISTORY OF MORE THAN NINE SURGERIES, SPINA BIFIDA, OR REPEATED CATHERIZATIONS? NO LATEX RISK : ARE YOU FREQUENTLY EXPOSED TO LATEX PRODUCTS IN YOUR OCCUPATION?NO DATE ASKED : 12/12/2020 ALCOHOL USE: SOCIAL. ALCOHOL SCREENING DID YOU HAVE A DRINK CONTAINING ALCOHOL IN THE PAST YEAR?YES HOW OFTEN DID YOU HAVE SIX OR MORE DRINKS ON ONE OCCASION IN THE PAST YEAR?NEVER (0 POINTS) HOW MANY DRINKS DID YOU HAVE ON A TYPICAL DAY WHEN YOU WERE DRINKING IN THE PAST YEAR?1 OR 2 (0 POINTS) HOW OFTEN DID YOU HAVE A DRINK CONTAINING ALCOHOL IN THE PAST YEAR?TWO TO FOUR TIMES A MONTH (2 POINTS) POINTS2 INTERPRETATIONNEGATIVE RECREATIONAL DRUG USE DRUG USE?NO CAFFEINE CAFFEINE USE?YES HOW OFTEN AND HOW MUCH? 2 CUPS COFFEE/DAY [employer]ENT[employer]AL [id number] [employer] L[employer] LANGUAGES SPOKEN:BURUNDIAN EDUCATION LEVEL OF EDUCATION:NOT FINISHED COLLEGE LEARNING BARRIERS / SPECIAL NEEDS BARRIERS TO LEARNING?NO HEARING IMPAIRED?NO VISION IMPAIRED?NO COGNITIVELY IMPAIRED?NO READINESS TO LEARN?YES LEARNING PREFERENCES?NO LEARNING CAPABILITIES PRESENT?YES EMOTIONAL BARRIERS?YES PTSD, ANXIETY, DEPRESSION SPECIAL DEVICES?NO CONTROLLER OPERATIONS AND HR MANAGER NEEDED?NO DOMESTIC VIOLENCE DO YOU FEEL SAFE IN YOUR ENVIRONMENT?YES TODAY'S VISIT NOTES, FROM 0-10, WHAT LEVEL IS YOUR PAIN TODAY? 0. - PFS REFERRAL NEEDED?NO CLERGY REFERRAL NEEDED?NO PUBLIC HEALTH REFERRAL NEEDED?NO WAS THE PROVIDER NOTIFIED OF ANY PERTINENT INFO?NO HAS THE PATIENT BEEN EDUCATED REGARDING HIS/HER PLAN OF CARE?YES HAS THE PATIENT BEEN EDUCATED REGARDING PAIN, THE RISK FOR PAIN, THE IMPORTANCE OF EFFECTIVE PAIN MANAGEMENT, AND THE PAIN ASSESSMENT PROCESS?YES REVIEW OF SYSTEMS CONSTITUTIONAL: ANY RECENT FEVER NO . CHILLS NO . WEIGHT CHANGE OF UNKNOWN REASONS NO . MUSCULOSKELETAL: ANY UNUSUAL JOINT PAIN OR SWELLING NOT MENTIONED NO . SYSTEMIC LUPUS NO . ANY NEUROMUSCULAR DISORDER NOT MENTIONED NO . LYME DISEASE NO . GASTROENTEROLOGY: ANY NEW CHANGE IN BOWEL CONTROL? NO . HISTORY OF LIVER DISORDER NOT MENTIONED NO . HISTORY OF UNUSUAL ABDOMINAL PAIN OR CRAMPING NOT MENTIONED NO . NO CONSTIPATION. GENITOURINARY: ANY NEW CHANGE IN BLADDER CONTROL? NO . ANY RENAL/KIDNEY CONDITON NOT MENTIONED NO . NEUROLOGY: HISTORY OF TBI NOT MENTIONED NO . OTHER NEW NUMBNESS OR PAIN PATTERNS NOT MENTIONED NO . NEW ONSET DIZZINESS OR NEUROLOGICAL CHANGES NOT MENTIONED NO . HISTORY OF SEVERE HEADACHES NOT MENTIONED NO . HISTORY OF STROKE OR NEUROLOGICAL DISORDER NOT MENTIONED NO . CARDIOLOGY: HEART SURGERY NO . CONGESTIVE HEART FAILURE/FLUID OVERLOAD NOT MENTIONED NO . HISTORY OF CHEST PAIN,IRREGULAR HEART BEAT NOT MENTIONED NO . RESPIRATORY: SHORTNESS OF BREATH ON EXERTION, WHEEZES, UNUSUAL COUGH NOT MENTIONED NO . ENDOCRINOLOGY: ADRENAL GLAND OR THYROID DISORDERS NOT MENTIONED NO . UNUSUAL URINATION, DIZZINESS OR LETHARGY NOT MENTIONED NO . VITAL SIGNS WT 204.2 LBS, HT 63 IN, BMI 36.17 INDEX, BP 133/71 MM HG, HR 74 /MIN, RR 18 /MIN, TEMP 96.7 F, OXYGEN SAT % 100%, SAFE IN ENV? (Y/N) YES, NA INITIALS SC 08:46. EXAMINATION GENERAL EXAMINATION: GENERALNO ACUTE DISTRESS, WELL NOURISHED AND HYDRATED. PSYCHAPPROPRIATE MOOD AND AFFECT . LUNGS:CLEAR TO AUSCULTATION BILATERALLY, NO WHEEZES, RHONCHI, RALES. HEART:NO MURMURS, REGULAR RATE AND RHYTHM. BACK:DENIES POINT TENDERNESS ALONG LUMBAR SPINE, STARTING SKIN SHOWS NO ERYTHEMA, ECCHYMOSIS, INCREASED WARMTH, AND/OR SKIN ERUPTIONS NOTED. . MUSCULOSKELETAL:EQUAL STRENGTH OF THE LOWER EXTREMITIES BILATERALLY . ASSESSMENTS INTERVERTEBRAL DISC DISORDER WITH RADICULOPATHY OF LUMBAR REGION - M51.16 (PRIMARY) USE OF OPIATES FOR THERAPEUTIC PURPOSES - Z79.891 TREATMENT INTERVERTEBRAL DISC DISORDER WITH RADICULOPATHY OF LUMBAR REGION START HYDROCODONE-ACETAMINOPHEN TABLET, 5-325 MG, 1 TABLET NEEDED, ORALLY, EVERY 12 HRS PRN PAIN, 30 DAYS, 60 LAB: URINE TEST GROUP GEN STOUT 12/12/2020 9:32:15 AM > LAST DOSE: TIZANIDINE 12/12/20, PERCOCET 12/09/20; AMITRYPTILINE 12/03/20; LEXAPRO 12/12/20; LEVOTHYROXINE 12/12/20; TRAMADOL 12/12/20 NOTES: 40-YEAR-OLD FEMALE IN FOR INITIAL PAIN CONSULT REGARDING LOW BACK PAIN. GIVEN PRESENTING SYMPTOMS AND RESULTS OF PHYSICAL EXAMINATION RECOMMENDED STOPPING TRAMADOL AND STARTING NORCO 5/325 MG TWICE A DAY NEEDED FOR PAIN WITH FOLLOW-UP IN ONE MONTH TO DETERMINE EFFICACY OF TREATMENT. PATIENT HAS EXPRESSED UNDERSTANDING OF AND WAS IN AGREEMENT WITH TREATMENT PLAN. GIVEN TIME TO ASK QUESTIONS AND EXPRESS CONCERNS. , ISTOP REGISTRY REVIEWED AND DEMONSTRATES COMPLLIANCE. (REF # [id number] ). CLINICAL NOTES: MEDICATION INFORMATION PRINTED AND PROVIDED TO PATIENT. PATIENT VERBALIZED UNDERSTANDING. GEN STOUT MA. PROCEDURE CODES FA211 ESTABILISHED PATIENT [facility] CHARGE DISPOSITION & COMMUNICATION FOLLOW UP 4 WEEKS (REASON: LOW BACK PAIN) ELECTRONICALLY SIGNED BY YUMIKO KIRKLAND ON 12/13/2020 AT 08:55 AM EDT DISCLAIMER : THIS IS A VISIT SUMMARY EXTRACTED FROM THE [employer] CHART. IT IS NOT A COPY OF THE [employer] PROGRESS NOTE. [facility]
== END ==
LOC: M PAIN 08:30
PROVIDERS: ATTEND Family Medicine
DX: M51.16 Intervertebral disc disorders with radiculopathy, lumbar region (principal); F17.290 Nicotine dependence, other tobacco product, uncomplicated; Z86.59 Personal history of other mental and behavioral disorders; Z98.84 Bariatric surgery status; Z88.6 Allergy status to analgesic agent; Z88.8 Allergy status to other drugs, medicaments and biological substances; Z79.899 Other long term (current) drug therapy

== ENCOUNTER → 2021-02-14 | Outpatient (CLI) | payer BC ==
[~2021-02-14] MED LIST changes: +COVI100V IM; +D31000TA2 PO; +MULT-90 PO; +MULT1TAB94 PO; +ULTR5TAB PO
--- NOTE | 2021-02-15 23:46 | ECWPNPC ---
PATIENT NAME: VANDANA RIOS : 1980 GENDER: FEMALE VISIT DATE: 02/14/2021 DISCHARGE DATE: 02/14/21 1001 VISIT LOCKED DATE TIME: PHYSICIAN: LOENARD CAMARGO RESOURCE: LEONARD CAMARGO REASON FOR APPOINTMENT 1. LOW BACK PAIN HISTORY OF PRESENT ILLNESS GENERAL: HPI 40-YEAR-OLD FEMALE IN FOR CHRONIC PAIN FOLLOW-UP. AT LAST CLINIC VISIT PATIENT WAS STARTED ON HYDROCODONE AND SHE ADMITS TODAY THAT THIS HAS BEEN BENEFICIAL. SHE RATES HER PAIN CURRENTLY AT A 0 OUT OF 10. SHE DENIES BEEN SIDE EFFECTS AT THIS TIME.. -. FALL RISK SCREENING: SCREENING : NO FALLS REPORTED IN THE LAST YEAR. PAIN SCREENING: PATIENT HAS A COMPLAINT OF ACUTE OR CHRONIC PAIN :YES LOCATION OF PAIN:LOW BACK INTENSITY OF PAIN (SCALE OF 1 TO 10):0 NURSING NOTE: -. PAIN CENTER INTAKE QUESTIONS: DO YOU HAVE A HISTORY OF MRSA? :NO DO YOU TAKE A BLOOD THINNERS? :NO DO YOU HAVE ANY BLEEDING DISORDERS? :NO ANY NEW NUMBNESS OR WEAKNESS IN YOUR LEGS OR ARMS? :NO ANY PACEMAKER,DEFIBRILLATOR, OR DORSAL COLUMN STIMULATOR? :NO DO YOU HAVE ANY RASHES OR OPEN SORES? :NO ARE YOU ALLERGIC TO IV DYE? :NO ARE YOU DIABETIC? :NO ANY NEW PROBLEMS WITH YOUR MEDICATIONS? :NO HAVE YOU RECEIVED A VACCINE IN THE PAST 30 DAYS? :NO DO YOU PLAN TO RECEIVE A VACCINE IN THE NEXT 21 DAYS? :NO DO YOU NEED ANY PRESCRIPTION? :NO DO YOU TAKE ANY IMMUNOSUPPRESSIVE MEDICATIONS? :NO DO YOU HAVE ANY KIDNEY OR LIVER DISEASE? :NO IS THERE A CHANCE YOU COULD BE ? :NO ARE YOU BREAST FEEDING? :NO CURRENT MEDICATIONS TAKING LEVOTHYROXINE SODIUM 50 MCG TABLET 1 TABLET ORALLY ONCE A DAY TAKING LEXAPRO 20 MG TABLET 1 TABLET ORALLY ONCE A DAY TAKING TIZANIDINE HCL 4 MG TABLET 1 TABLET NEEDED ORALLY THREE TIMES A DAY, NOTES: HAS NOT TAKEN IN1-2 MONTHS TAKING AMITRIPTYLINE HCL 10 MG TABLET 1 TABLET AT BEDTIME ORALLY ONCE A DAY, NOTES: HAS NOT TAKEN IN MORE THAN 6 WEEKS TAKING HYDROCODONE-ACETAMINOPHEN 5-325 MG TABLET 1 TABLET NEEDED ORALLY EVERY 12 HRS PRN PAIN TAKING MULTIVITAMIN - TABLET 1 TABLET ORALLY ONCE A DAY TAKING HAIR SKIN AND NAILS FORMULA - TABLET DIRECTED ORALLY TAKING BIOTIN 5000 5 MG CAPSULE 1 CAPSULE ORALLY ONCE A DAY TAKING VITAMIN D3 25 MCG (1000 UT) CAPSULE 1 CAPSULE ORALLY ONCE A DAY NOT-TAKING EFFEXOR XR 150 MG CAPSULE EXTENDED RELEASE 24 HOUR 2 WITH FOOD ORALLY ONCE A DAY NOT-TAKING VITAMIN B 12 100 MCG LOZENGE ORALLY DAILY NOT-TAKING VITAMIN D 36342 UNIT CAPSULE 1 CAPSULE ORALLY WEEKLY NOT-TAKING BIOTIN 5000 5 MG CAPSULE 1 CAPSULE ORALLY ONCE A DAY NOT-TAKING METHOCARBAMOL 500 MG TABLET 1 TAB ORALLY BID NOT-TAKING PERCOCET 5-325 MG TABLET 1 TABLET NEEDED ORALLY BID PRN PAIN WEAN OFF MDD=2 MEDICATION LIST REVIEWED AND RECONCILED WITH THE PATIENT PAST MEDICAL HISTORY 2010 GASTRIC [facility] ANEMIA DEPRESSION ANXIETY PTSD ALLERGIES MOTRIN: CONTRAINDICATED - CONTRAINDICATION GABAPENTIN: BLURRED VISION - SIDE EFFECTS FLEXERIL: EXTREME SLEEPINESS - SIDE EFFECTS SOCIAL HISTORY GENERAL: TOBACCO USE ARE YOU A:CURRENT SMOKER VAPE ARE YOU INTERESTED IN QUITTING?NOT READY TO QUIT COUNSELED THE PATIENT ON SMOKING EFFECTS, EDUCATION [id number]/2021 PATIENT COUNSELED ON THE DANGERS OF TOBACCO USE AND URGED TO QUIT:12/09/2017 E-CIGARETTEYES LATEX QUESTIONNAIRE LATEX ALLERGY : HAVE YOU EVER DEVELOPED ANY TYPE OF REACTION AFTER HANDLING LATEX PRODUCTS SUCH RUBBER GLOVES, CONDOMS, DIAPHRAGMS, BALLOONS, SOCKS, OR UNDERWEAR?NO LATEX ALLERGY : HAVE YOU EVER DEVELOPED ANY TYPE OF REACTION DURING OR AFTER DENTAL APPOINTMENT, VAGINAL/RECTAL EXAMINATION, SURGICAL PROCEDURE, OR ANY OTHER EXPOSURE?NO LATEX RISK : HAVE YOU EVER HAD ANY DIFFICULTY BREATHING OR HIVES AFTER EATING OR HANDLING ANY FRUITS, OR VEGETABLES; SUCH KIWI, BANANAS, STONE FRUITS, OR CHESTNUTSNO LATEX RISK : DO YOU HAVE A PREVIOUS PERSONAL HISTORY OF MORE THAN NINE SURGERIES, SPINA BIFIDA, OR REPEATED CATHERIZATIONS? NO LATEX RISK : ARE YOU FREQUENTLY EXPOSED TO LATEX PRODUCTS IN YOUR OCCUPATION?NO DATE ASKED : 02/14/2021 ALCOHOL USE: SOCIAL. ALCOHOL SCREENING DID YOU HAVE A DRINK CONTAINING ALCOHOL IN THE PAST YEAR?YES HOW OFTEN DID YOU HAVE SIX OR MORE DRINKS ON ONE OCCASION IN THE PAST YEAR?NEVER (0 POINTS) HOW MANY DRINKS DID YOU HAVE ON A TYPICAL DAY WHEN YOU WERE DRINKING IN THE PAST YEAR?1 OR 2 (0 POINTS) HOW OFTEN DID YOU HAVE A DRINK CONTAINING ALCOHOL IN THE PAST YEAR?TWO TO FOUR TIMES A MONTH (2 POINTS) POINTS2 INTERPRETATIONNEGATIVE RECREATIONAL DRUG USE DRUG USE?NO CAFFEINE CAFFEINE USE?YES HOW OFTEN AND HOW MUCH? 2 CUPS COFFEE/DAY PRESYBETERIAN [id number] QUAKER LANGUAGE LANGUAGES SPOKEN:LITHUANIAN EDUCATION LEVEL OF EDUCATION:NOT FINISHED COLLEGE LEARNING BARRIERS / SPECIAL NEEDS CHANGE FROM LAST VISIT?NO BARRIERS TO LEARNING?NO HEARING IMPAIRED?NO VISION IMPAIRED?NO COGNITIVELY IMPAIRED?NO READINESS TO LEARN?YES LEARNING PREFERENCES?NO LEARNING CAPABILITIES PRESENT?YES EMOTIONAL BARRIERS?YES PTSD, ANXIETY, DEPRESSION SPECIAL DEVICES?NO ETL PROGRAMMER NEEDED?NO DOMESTIC VIOLENCE DO YOU FEEL SAFE IN YOUR ENVIRONMENT?YES TODAY'S VISIT NOTES, FROM 0-10, WHAT LEVEL IS YOUR PAIN TODAY? 0. - PFS REFERRAL NEEDED?NO CLERGY REFERRAL NEEDED?NO PUBLIC HEALTH REFERRAL NEEDED?NO WAS THE PROVIDER NOTIFIED OF ANY PERTINENT INFO?NO HAS THE PATIENT BEEN EDUCATED REGARDING HIS/HER PLAN OF CARE?YES HAS THE PATIENT BEEN EDUCATED REGARDING PAIN, THE RISK FOR PAIN, THE IMPORTANCE OF EFFECTIVE PAIN MANAGEMENT, AND THE PAIN ASSESSMENT PROCESS?YES REVIEW OF SYSTEMS CONSTITUTIONAL: ANY RECENT FEVER NO . CHILLS NO . WEIGHT CHANGE OF UNKNOWN REASONS NO . GASTROENTEROLOGY: NEW UNEXPLAINABLE CHANGES IN BOWEL CONTROL NO . CONSTIPATION NO . GENITOURINARY: ANY NEW CHANGE IN BLADDER CONTROL? NO . NEUROLOGY: NEW ONSET DIZZINESS OR NEUROLOGICAL CHANGES NOT MENTIONED NO . NEW NUMBNESS OR PAIN PATTERNS NOT MENTIONED AND PERTINENT TO TODAY'S VISIT NO . CARDIOLOGY: NEW CHEST PRESSURE NO . PATIENT DENIES NO . RESPIRATORY: UNEXPLAINABLE COUGH NO . NEW SHORTNESS OF BREATH NO . VITAL SIGNS WT 210 LBS, HT 63 IN, BMI 37.20 INDEX, BP 145/73 MM HG, HR 81 /MIN, RR 18 /MIN, TEMP 98.2 F, OXYGEN SAT % 98%, SAFE IN ENV? (Y/N) YES, REVIEWED BY: MARK STOUT MA. EXAMINATION GENERAL EXAMINATION: GENERALNO ACUTE DISTRESS, WELL NOURISHED AND HYDRATED. PSYCHAPPROPRIATE MOOD AND AFFECT . LUNGS:CLEAR TO AUSCULTATION BILATERALLY, NO WHEEZES, RHONCHI, RALES. HEART:NO MURMURS, REGULAR RATE AND RHYTHM. ASSESSMENTS INTERVERTEBRAL DISC DISORDER WITH RADICULOPATHY OF LUMBAR REGION - M51.16 (PRIMARY) TREATMENT INTERVERTEBRAL DISC DISORDER WITH RADICULOPATHY OF LUMBAR REGION NOTES: 40-YEAR-OLD FEMALE IN FOR CHRONIC PAIN FOLLOW-UP. GIVEN PRESENTING SYMPTOMS RECOMMENDED CONTINUATION OF CURRENT MEDICATION REGIMEN WITH FOLLOW-UP IN 3 MONTHS. PATIENT HAS EXPRESSED UNDERSTANDING OF AND WAS IN AGREEMENT WITH TREATMENT PLAN. GIVEN TIME TO ASK QUESTIONS AND EXPRESS CONCERNS. [employer] REGISTRY REVIEWED AND DEMONSTRATES COMPLLIANCE. (REF #[id number] ) BRINGS IN MEDICATIONS WHICH IS APPROPRIATE FOR WHAT WAS DISPENSED. RECENT URINE TOXICOLOGY REVIEWED. NO UNAUTHORIZED MEDICATIONS. NO ILLICIT SUBSTANCES AND PRESCRIBED MEDICATIONS WERE PRESENT. PROCEDURE CODES [id number] ESTABILISHED PATIENT [facility] CHARGE DISPOSITION & COMMUNICATION FOLLOW UP 3 MONTHS (REASON: BACK PAIN) ELECTRONICALLY SIGNED BY YUMIKO KIRKLAND ON 02/15/2021 AT 09:34 AM EDT DISCLAIMER : THIS IS A VISIT SUMMARY EXTRACTED FROM THE [employer] CHART. IT IS NOT A COPY OF THE [employer] PROGRESS NOTE. JOHN
== END ==
LOC: M PAIN 09:30
PROVIDERS: ATTEND Family Medicine
DX: M51.16 Intervertebral disc disorders with radiculopathy, lumbar region (principal); G89.29 Other chronic pain; F17.290 Nicotine dependence, other tobacco product, uncomplicated; Z86.59 Personal history of other mental and behavioral disorders; Z98.84 Bariatric surgery status; Z88.6 Allergy status to analgesic agent; Z88.8 Allergy status to other drugs, medicaments and biological substances; Z79.899 Other long term (current) drug therapy

== ENCOUNTER → 2021-11-27 | Outpatient (CLI) | payer BC ==
[~2021-11-27] MED LIST changes: -D31000TA2 PO; +VITA100093 PO
== END ==
LOC: M PAIN 11:00
PROVIDERS: ATTEND Nurse Practitioner Family
DX: M51.16 Intervertebral disc disorders with radiculopathy, lumbar region (principal); G89.29 Other chronic pain; F17.290 Nicotine dependence, other tobacco product, uncomplicated; Z98.84 Bariatric surgery status; Z86.59 Personal history of other mental and behavioral disorders; Z88.6 Allergy status to analgesic agent; Z88.8 Allergy status to other drugs, medicaments and biological substances; E66.01 Morbid (severe) obesity due to excess calories; Z68.41 Body mass index [BMI] 40.0-44.9, adult; Z79.899 Other long term (current) drug therapy

== ENCOUNTER → 2022-07-09 | Outpatient (CLI) | payer BC | LOC: M PAIN 14:00 | PROVIDERS: ATTEND Nurse Practitioner Family | DX: M51.16 Intervertebral disc disorders with radiculopathy, lumbar region (principal); G89.29 Other chronic pain; F17.290 Nicotine dependence, other tobacco product, uncomplicated; Z86.59 Personal history of other mental and behavioral disorders; Z98.84 Bariatric surgery status; Z88.6 Allergy status to analgesic agent; Z88.8 Allergy status to other drugs, medicaments and biological substances; E66.01 Morbid (severe) obesity due to excess calories; Z68.41 Body mass index [BMI] 40.0-44.9, adult; Z79.899 Other long term (current) drug therapy ==

== ENCOUNTER → 2022-12-06 | Outpatient (CLI) | payer BC ==
[~2022-12-06] MED LIST changes: +TOPI-254 PO; -TOPI50TA9 PO
== END ==
LOC: M PAIN 15:45
PROVIDERS: ATTEND Nurse Practitioner Family
DX: M25.551 Pain in right hip (principal); M51.16 Intervertebral disc disorders with radiculopathy, lumbar region; G89.29 Other chronic pain; F17.290 Nicotine dependence, other tobacco product, uncomplicated; Z98.84 Bariatric surgery status; Z86.59 Personal history of other mental and behavioral disorders; Z88.6 Allergy status to analgesic agent; Z88.8 Allergy status to other drugs, medicaments and biological substances; Z79.899 Other long term (current) drug therapy

== ENCOUNTER → 2023-02-07 | Outpatient (CLI) | payer BC | LOC: M PAIN 14:00 | PROVIDERS: ATTEND Nurse Practitioner Family | DX: M51.16 Intervertebral disc disorders with radiculopathy, lumbar region (principal); G89.29 Other chronic pain; M25.551 Pain in right hip; F17.290 Nicotine dependence, other tobacco product, uncomplicated; Z86.59 Personal history of other mental and behavioral disorders; Z98.84 Bariatric surgery status; Z88.6 Allergy status to analgesic agent; Z88.8 Allergy status to other drugs, medicaments and biological substances; Z79.899 Other long term (current) drug therapy ==